=== PATIENT | female | born 1970 | race African-American/Black ===

== ENCOUNTER 2017-08-11 07:02 | Outpatient (CLI) | payer OTHER | END 2017-08-11 07:03 | disposition home or self-care (01) | LOC: BICULT 07:02 | PROVIDERS: ATTEND Nurse Practitioner Family | DX: R10.9 Unspecified abdominal pain (principal); N27.1 Small kidney, bilateral | CPT/HCPCS: 76700 ==

== ENCOUNTER 2018-05-14 11:08 | Outpatient (CLI) | payer OTHER ==
--- NOTE | 2018-05-14 11:19 | RAD ---
PA AND LATERAL CHEST: Date: 05/14/18 HISTORY: Cough. FINDINGS: Heart size and mediastinum are within normal limits. Lungs are clear of infiltrates. No significant b shauna findings. IMPRESSION: 1. No active intrathoracic disease. 2. Incidental note is made of a minimal scoliosis. POS: [facility]
== END 2018-05-14 11:09 | disposition home or self-care (01) ==
LOC: RAD-FRANK 11:08
PROVIDERS: ATTEND Nurse Practitioner Family
DX: J06.9 Acute upper respiratory infection, unspecified (principal); M41.9 Scoliosis, unspecified
CPT/HCPCS: 71046